=== PATIENT | male | born 1990 | race Caucasian/White ===

== ENCOUNTER 2017-07-18 16:18 | Outpatient (CLI) | payer OTHER ==
--- NOTE | 2017-07-19 11:05 | MRI Report ---
EXAM: LEFT KNEE MRI WITHOUT CONTRAST EXAM DATE: 07/18/2017 04:27 PM. CLINICAL HISTORY: Left knee pain. Dislocated patella January 2017. COMPARISON: None. TECHNIQUE: Multiplanar, multisequence T1-weighted and fluid-sensitive sequences of the knee without c ontrast. Other: None. FINDINGS: Bones: There is a nondisplaced osteochondral fragment at the patellar apex which measures 9 mm in tr ansverse dimension and 1.5 cm in height (image 25 series 401 and image 14 series 501). Negative for f luid signal osteochondral fragment margin to suggest unstable osteochondral fragment. Trace edema ant erior aspect lateral femoral condyle (image 23 series 401) with associated focal severe chondromalaci a. 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 Medial Meniscus: The medial meniscus is intact. Lateral Meniscus: The lateral meniscus is intact. Cruciate Ligaments: The anterior and posterior cruciate ligaments are intact. Collateral Ligaments: The medial collateral and lateral collateral ligamentous structures are intact. Tendons: The quadriceps, patellar, semimembranosus, and popliteus tendons are unremarkable. Musculature: No edema or fatty atrophy. Other: No effusion. No popliteal cyst. No loose bodies. The medial and lateral retinacula are intact . The subcutaneous tissues and fat pads are unremarkable. Lateral subluxation of the patella. IMPRESSION: 1. Shallow trochlear groove with mild lateral patellar subluxation. 2. Mild chondromalacia lateral patellar facet. 3. Negative for meniscus tear or internal derangement. 4. Likely stable osteochondral fragment 9 mm in transverse dimension and 1.5 cm in height at the smith llar apex. 5. 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 [facility] MUSCULOSKELETAL RADIOLOGY SECTION Referring Provider Line: [phone] SITE ID: [id number]
== END 2017-07-18 16:19 | disposition home or self-care (01) ==
LOC: DI 16:18
PROVIDERS: ATTEND Orthopaedic Surgery
DX: S83.015A Lateral dislocation of left patella, initial encounter (principal)

== ENCOUNTER 2017-08-14 13:15 | Outpatient (CLI) | payer OTHER ==
--- NOTE | 2017-08-14 16:10 | Ultrasound Report ---
Procedure Date: 08/14/2017 Accession Number: [id number] / [id number] Procedure: US - Testicle w/Doppler CPT Code: FULL RESULT: EXAM: Testicle w/Doppler DATE: 08/14/2017 2:02 PM CLINICAL HISTORY: SPERMATOCELE COMPARISON: None TECHNIQUE: Real-time sonographic imaging was performed with Doppler. Apple Sorter static images were obtained for review. FINDINGS: Right testicle measures 5.7 x 3.3 x 2.7 cm. It demonstrates normal flow and echotexture. No hydrocele or varicocele is seen. The right epididymis contains a 1.4 cm cyst, but is otherwise unremarkable. The left testicle measures 5.4 x 3.7 x 3.0 cm. It demonstrates normal flow and echotexture. Trace hydroceles present. No varicocele is seen. The left epididymis is unremarkable. No hernia is identified. IMPRESSION: Incidental right epididymal head cyst. Normal testes.
== END 2017-08-14 13:16 | disposition home or self-care (01) ==
LOC: DI 13:15
PROVIDERS: ATTEND Urology
DX: N43.40 Spermatocele of epididymis, unspecified (principal)
CPT/HCPCS: 76870; 93975

== ENCOUNTER 2023-09-24 08:30 | Outpatient (CLI) | payer SELFPAY | END 2023-09-24 08:45 | disposition home or self-care (01) | LOC: LAB.N 08:30 | PROVIDERS: ATTEND Nurse Practitioner | DX: R07.0 Pain in throat (principal) | CPT/HCPCS: 87070 ==